=== PATIENT | male | born 1945 | race Caucasian/White ===

== ENCOUNTER 2022-12-19 16:19 | Inpatient (IN) | payer OTHER, MEDICARE ==
[~2022-12-19] VITALS: Ht 177.8 cm; Wt 83.7 kg
--- NOTE | 2022-12-19 16:28 | NUR ---
Patient to ER bed 01 to gown for evaluation. Side rails up.
--- NOTE | 2022-12-19 16:28 | NUR ---
MD NORMAN AT BEDSIDE FOR ASSESS. CALLED CODE STROKE. PT AAOX4. VSS. NAD NOTED. HAD SYNCOPAL EPISODE X 2 AT HOME PER PATIENT AND FIRE DEPARTMENT.
[2022-12-19 16:29] VITALS: BP_SYST 113
--- NOTE | 2022-12-19 16:31 | NUR ---
CODE STROKE CALLED
--- NOTE | 2022-12-19 16:31 | NUR ---
Libertad barton in [facility] - 12/19/22 at 1632 by [email or web address] Code stroke called at this time
[2022-12-19] MEDS ORDERED: NACL 0.9% 1,000 ML IV ONE ×2 (16:45→19:15)
[2022-12-19 17:15] LABS: BASOPHILS % (AUTO) 0.2 % (0.0-2.0); EOSINOPHILS % (AUTO) 0.1 % (0.0-4.0); HEMATOCRIT 35.3 % (36-54); HEMOGLOBIN 12.2 g/dL (14.0-18.0); LYMPHOCYTES % (AUTO) 5.4 % (20.5-51.5); MEAN CORPUSCULAR HEMOGLOBIN 31 pg (27-31); MEAN CORPUSCULAR HGB CONC 35 % (32-36); MEAN CORPUSCULAR VOLUME 90 fL (79.0-98.0); MONOCYTES # (AUTO) 1.3 K/uL (0.0-1.0); MONOCYTES % (AUTO) 6.7 % (1.7-9.3); NEUTROPHILS # (AUTO) 16.5 K/uL (1.8-7.7); NEUTROPHILS % (AUTO) 87.6 % (40.0-70.0); PLATELET COUNT (AUTO) 235 K/uL (130-430); RED BLOOD CELL COUNT(AUTO) 3.92 MIL/uL (4.2-6.2); RED CELL DISTRIBUTION WIDTH 14.6 % (9.0-15.0); WHITE BLOOD COUNT (AUTO) 18.9 K/uL (4.8-10.8)
[2022-12-19 17:22] LABS: PROTHROMBIN TIME 10.4 SECS (9.5-12.5)
[2022-12-19 17:25] LABS: ANION GAP 15 (5-15); CALCIUM 8.2 mg/dL (8.4-11.0); CHLORIDE 97 mmol/L (98-107); CREATININE 1.63 mg/dL (0.55-1.30); GLUCOSE 132 mg/dL (70-99); UREA NITROGEN, BLOOD 66 mg/dL (8-21)
[2022-12-19 17:30] LABS: ALANINE AMINOTRANSFERASE 65 U/L (12-78); ALBUMIN 3.8 g/dL (3.4-4.8); ALCOHOL, BLOOD < 3 mg/dL (<10); ASPARTATE AMINOTRANSFERASE 31 U/L (10-37); TOTAL BILIRUBIN 0.6 mg/dL (0.0-1.0)
[2022-12-19] MEDS ORDERED: iohexoL 350 mgI/mL, 100 ML INFUS..BTL IV ONE (18:21)
--- NOTE | 2022-12-19 19:06 | NUR ---
Admit bed requested Patient will be admitted to care of [[facility]]. Admitted to [Tele] unit. Diagnosis [Syncope] Inpatient (Yes or No) [yes] Observation (Yes or No) [No] Orientation concerns or request close to nursing station (Yes or No) [No] Covid Status [ n/a] On vent or bipap [n/a] Isolation requirements [n/a] Needs a sitter [n/a] From Home (Yes or if No enter name of facility) [yes] Requires Dialysis (Yes or No) [n/a] Med Rec Completed (Yes of No) []
[2022-12-19 19:20] LABS: BILIRUBIN,URINE NEGATIVE (NEGATIVE); COLOR,URINE YELLOW (YELLOW); GLUCOSE,URINE NEGATIVE (NEGATIVE); KETONES,URINE NEGATIVE (NEGATIVE); NITRITE, URINE NEGATIVE (NEGATIVE); PROTEIN URINE NEGATIVE (NEGATIVE); UROBILINOGEN,URINE 0.2 (0.2-1.0)
[2022-12-19 19:27] LABS: BLOOD, URINE TRACE (NEGATIVE)
[2022-12-19 19:28] LABS: BACTERIA,URINE FEW /HPF (None Seen); CLARITY/URINE HAZY (CLEAR); LEUKOCYTE ESTERASE ,URINE 2+ (NEGATIVE); RBC,URINE 0-3 /HPF (0-3)
[2022-12-19 19:29] LABS: HYALINE CASTS, URINE 0-10 /LPF (None Seen); MUCUS,URINE None Seen /LPF (None Seen)
[2022-12-19] MEDS ORDERED: ZOLPIDEM TARTRATE 5 MG TABLET PO PRN (19:30)
[2022-12-19] MEDS ORDERED: MUPIROCIN 2% TOPICAL OINTMENT 22 GM NS PRN (19:30)
[2022-12-19] MEDS ORDERED: ACETAMINOPHEN 325 MG TABLET PO PRN (19:30)
[2022-12-19] MEDS ORDERED: POTASSIUM CHLORIDE 20 MEQ TAB.PRT.SR PO PRN (19:30)
[2022-12-19] MEDS ORDERED: MORPHINE 2 MG/ML INJ. SYRINGE IVP PRN ×2 (19:30)
[2022-12-19] MEDS ORDERED: MAGNESIUM SULFATE 50 ML IV PRN (19:30)
[2022-12-19] MEDS ORDERED: DOCUSATE SODIUM 100 MG CAPSULE PO PRN (19:30)
[2022-12-19] MEDS ORDERED: ONDANSETRON HCL 4 MG/2 ML VIAL IVP PRN (19:30)
--- NOTE | 2022-12-19 19:30 | NUR ---
FIRST CONTACT WITH PT. ASSESSMENT COMPLETED. AWAITING ROOM ASSIGNMENT
[2022-12-19 19:38] LABS: BARBITURATE, URINE NEGATIVE (NEG <=200); BENZODIAZEPINE, URINE NEGATIVE (NEG <=150); CANNABINOID, URINE NEGATIVE (NEG <=50); COCAINE, URINE NEGATIVE (NEG <=150); METHAMPHETAMINES SCREEN,URINE NEGATIVE (NEG <=500); OPIATE, URINE NEGATIVE (NEG <=100); PHENCYCLIDINE SCREEN,URINE NEGATIVE (NEG <=25); UR TRICYCLIC ANTIDEPRESSANTS NEGATIVE (NEG <=300); URINE AMPHETAMINE NEGATIVE (NEG <=500); URINE METHADONE NEGATIVE (NEG <=200); URINE OXYCODONE SCREEN NEGATIVE (NEG <=100); URINE PROPOXYPHENE SCREEN NEGATIVE (NEG <=300)
--- NOTE | 2022-12-19 21:00 | NUR ---
PT RESTING WITH NO ACUTE DISTRESS.
[2022-12-19] MEDS: HEPARIN SODIUM,PORCINE 5,000 UNITS/ML VIAL SUBCUT SCH (21:33)
--- NOTE | 2022-12-19 22:15 | NUR ---
ADMIT NOTE Received pt from ER to the floor with a diagnosis of syncope. Admission process initiated. Patient oriented to pain management, safety and call light-teach back done. Patient AOx4. Denies dizziness.
[2022-12-19 22:30] VITALS: BP_SYST 103
--- NOTE | 2022-12-19 22:32 | NUR ---
Patient will be admitted to care of DR PITTMAN. Admitted to TELE unit. Will go to room 121A . Belongings list completed. Complete and up to date summary report printed. SBAR report to be given at bedside TO MIKI TINOCO with opportunity for questions.
[2022-12-20] VITALS (16 sets, daily range): BP systolic 82–127
[2022-12-20] MEDS: NACL 0.9% 1,000 ML IV SCH ×4 (00:15→21:14)
--- NOTE | 2022-12-20 04:25 | NUR ---
paged paged doctor janny for orders
[2022-12-20] MEDS ORDERED: NACL 0.9% 1,000 ML IV ONE ×2 (04:30→08:15)
--- NOTE | 2022-12-20 04:32 | NUR ---
Patient's BP 82/52, HR 105. Patient is AOx4 and asymptomatic. HR increased to 130 earlier in night when patient was ambulating to the bathroom but returned to 95 after return to bed. No dizziness, patient ambulated with steady gait. Patient also reported pain to right ribs when moving and stated he thinks he hit his right side on something when he fell at home. Notified Dr. Tse about patient's vitals and report of pain to right ribs. Received order for 1L NS bolus and Tylenol PRN.
[2022-12-20] MEDS: ACETAMINOPHEN 500 MG TABLET PO PRN ×4 (04:42→23:43)
--- NOTE | 2022-12-20 05:32 | NUR ---
CONSULTATION PAGED/CALLED Reason for Consultation: SYNCOPE Person Who was Notified: DR PANDEY VIA TEXT Consulting Physician: DR PANDEY Artist'S Manager Specialty: Ordering Physician: ZAIN
[2022-12-20 05:42] LABS: BASOPHILS % (AUTO) 0.5 % (0.0-2.0); EOSINOPHILS # (AUTO) 0.1 K/uL (0.0-0.4); EOSINOPHILS % (AUTO) 0.6 % (0.0-4.0); HEMATOCRIT 26.6 % (36-54); HEMOGLOBIN 9.3 g/dL (14.0-18.0); LYMPHOCYTES # (AUTO) 0.8 K/uL (1.0-5.5); LYMPHOCYTES % (AUTO) 10.5 % (20.5-51.5); MEAN CORPUSCULAR HEMOGLOBIN 31 pg (27-31); MEAN CORPUSCULAR HGB CONC 35 % (32-36); MEAN CORPUSCULAR VOLUME 90 fL (79.0-98.0); MONOCYTES # (AUTO) 0.7 K/uL (0.0-1.0); MONOCYTES % (AUTO) 9.3 % (1.7-9.3); NEUTROPHILS # (AUTO) 6.3 K/uL (1.8-7.7); NEUTROPHILS % (AUTO) 79.1 % (40.0-70.0); PLATELET COUNT (AUTO) 163 K/uL (130-430); RED BLOOD CELL COUNT(AUTO) 2.96 MIL/uL (4.2-6.2); RED CELL DISTRIBUTION WIDTH 14.5 % (9.0-15.0)
[2022-12-20 06:38] LABS: ANION GAP 10 (5-15); CALCIUM 7.4 mg/dL (8.4-11.0); CHLORIDE 106 mmol/L (98-107); CREATININE 1.33 mg/dL (0.55-1.30); GLUCOSE 147 mg/dL (70-99); UREA NITROGEN, BLOOD 45 mg/dL (8-21)
--- NOTE | 2022-12-20 07:00 | NUR ---
Notified Dr. Tse that following 1L NS bolus, patient's BP is 83/52 and HR 81. Patient still awake and alert and denies dizziness. Received orders to transfer to ICU, Levophed titrated to maintain SBP>90, and critical care consult with Dr. Mahoney.
[2022-12-20] MEDS ORDERED: NOREPINEPHRINE BITARTRATE 4 MG in NS 246 ML IV PRN (07:15)
--- NOTE | 2022-12-20 07:35 | NUR ---
Patient transfer to ICU for higher level care, SBAR report given to receiving nurse Juan M LIVINGSTON.
[2022-12-20] MEDS: ALBUMIN HUMAN 25% 50 ML IV SCH ×3 (09:46→17:19)
[2022-12-20] MEDS: cefTRIAXone 1 GM in D5W 50 ML IV SCH (09:47)
[2022-12-20] MEDS: HEPARIN SODIUM,PORCINE 5,000 UNITS/ML VIAL SUBCUT SCH ×2 (09:49→21:12)
--- NOTE | 2022-12-20 15:00 | NUR ---
Transfer from ICU Received SBAR report from Juan M LIVINGSTON from ICU, patient diagnosis of Syncope. AAOx4, anxious, vital signs stable. Complain of mild pain 2/10 to right rib cage, no other pain verbalizes at this time, no signs of distress noted. Respiration even and unlabored oxygen saturation 97% room air. IV infusing left AC patent, orient patient to room and environment. Continue to maintain safety precaution, bed in low position and call light w/in reached.
--- NOTE | 2022-12-20 18:50 | NUR ---
Closing Patient wake in bed, vital signs stable,no c/o pain/chest discomfort, all safety secured will endorse
--- NOTE | 2022-12-20 19:40 | NUR ---
PM ASSESSMENT; -Patient is awake, alert, oriented X 4. Patient oriented to hospital room, call light, toileting, pain management and safety-teach back done. Pt denies any chest pain,pain,sob,or any acute distress. IV site of LAC , no s/s any infiltration noted. IVF infusing well. Fall precaution in place. All safety measures in place, side rails x2, Call light within reach. Cont to monitor pt.
--- NOTE | 2022-12-20 23:43 | NUR ---
ROUNDS; -Pt is c/o rt flank pain aching 3/10, gave Tylenol po for pain mgmt. Assisting pt to bathroom and returned to bed safely. Bed alarmed,side rails x2. Cont to monitor pt.
[2022-12-21 01:00] VITALS: BP_SYST 146
--- NOTE | 2022-12-21 01:50 | NUR ---
ROUNDS; -Pt awakes, resting in bed comfortably. Pt denies any chest pain, pain,sob,or any acute distress. Bed alarmed,side rails x2. Cont to monitor pt.
[2022-12-21] MEDS: NACL 0.9% 1,000 ML IV SCH ×2 (02:36→17:12)
--- NOTE | 2022-12-21 02:38 | NUR ---
ROUNDS; - Assisting pt to bathroom and returned to bed safely after pt brushed his teeth. Bed alarmed,side rails x2. Cont to monitor pt.
[2022-12-21 06:02] LABS: ANION GAP 11 (5-15); CALCIUM 7.5 mg/dL (8.4-11.0); CHLORIDE 108 mmol/L (98-107); CREATININE 0.98 mg/dL (0.55-1.30); GLUCOSE 103 mg/dL (70-99); UREA NITROGEN, BLOOD 23 mg/dL (8-21)
[2022-12-21 06:05] LABS: ALANINE AMINOTRANSFERASE 46 U/L (12-78); ALBUMIN 3.2 g/dL (3.4-4.8); AMYLASE 106 U/L (0-100); ASPARTATE AMINOTRANSFERASE 27 U/L (10-37); CHOLESTEROL 108 mg/dL (<200); HDL CHOLESTEROL 64 mg/dL (>45); TOTAL BILIRUBIN 0.5 mg/dL (0.0-1.0); TRIGLYCERIDES 48 mg/dL (30-150)
[2022-12-21 06:18] LABS: BASOPHILS # (AUTO) 0.1 K/uL (0.0-0.2); BASOPHILS % (AUTO) 0.7 % (0.0-2.0); EOSINOPHILS # (AUTO) 0.1 K/uL (0.0-0.4); EOSINOPHILS % (AUTO) 1.6 % (0.0-4.0); HEMATOCRIT 27.1 % (36-54); HEMOGLOBIN 9.5 g/dL (14.0-18.0); LYMPHOCYTES # (AUTO) 1.2 K/uL (1.0-5.5); LYMPHOCYTES % (AUTO) 15.5 % (20.5-51.5); MEAN CORPUSCULAR HEMOGLOBIN 32 pg (27-31); MEAN CORPUSCULAR HGB CONC 35 % (32-36); MEAN CORPUSCULAR VOLUME 90 fL (79.0-98.0); MONOCYTES # (AUTO) 0.8 K/uL (0.0-1.0); MONOCYTES % (AUTO) 9.9 % (1.7-9.3); NEUTROPHILS # (AUTO) 5.8 K/uL (1.8-7.7); NEUTROPHILS % (AUTO) 72.3 % (40.0-70.0); PLATELET COUNT (AUTO) 156 K/uL (130-430); RED BLOOD CELL COUNT(AUTO) 3.01 MIL/uL (4.2-6.2); RED CELL DISTRIBUTION WIDTH 14.6 % (9.0-15.0)
--- NOTE | 2022-12-21 06:44 | NUR ---
CLOSING NOTES; -Pt is resting in bed comfortably. Pt denies any chest pain,pain,sob,or any acute distress. IVF infusing well. All safety measures in place. Pt's condition stable. will endorse to next nurse to continuity of care.
[2022-12-21 08:22] VITALS: BP_SYST 159
--- NOTE | 2022-12-21 08:22 | NUR ---
INITIAL ROUNDS Received pt AAOx4, no s/s resp distress, no c/o pain or discomfort, no c/o dizziness or lightheadedness. IVF infusing well at ordered rate with no s/s infiltration to site. Pt observed walking to the bathroom with steady gait and no light headedness. Plan of care for the day reviewed with pt-pt verbalized his understanding. Pain management, Hypotension, skin and safety discussed-teach back done. Call light within reach.
[2022-12-21] MEDS: cefTRIAXone 1 GM in D5W 50 ML IV SCH (09:18)
[2022-12-21] MEDS: HEPARIN SODIUM,PORCINE 5,000 UNITS/ML VIAL SUBCUT SCH ×2 (09:22→21:23)
[2022-12-21] MEDS ORDERED: ASA81 PO (11:05)
[2022-12-21] MEDS ORDERED: VALS1TAB80 PO (11:05)
--- NOTE | 2022-12-21 11:37 | NUR ---
ROUNDS//MD Pt very anxious and worried about going back to the ICU do to his BP 159/92 earlier-pt reassured that we can give him BP medications on MST and that Dr. Tse is aware and has decreased his IV F done to 80 ml/hr-plus we will monitor his BP. Called and spoke with pt's Zoila and obtained pt's home medications, Dr. Tse informed. Also, updated Zoila on pt's current plan of care and reassured her that he is doing better-she verbalized her understanding.
[2022-12-21] MEDS ORDERED: METOPROLOL TARTRATE 25 MG TABLET PO ONE (11:45)
[2022-12-21 17:05] VITALS: BP_SYST 152
[2022-12-21 19:00] VITALS: BP_SYST 146
--- NOTE | 2022-12-21 19:10 | NUR ---
CLOSING NOTE Pt sitting up in bed visiting with his family, no s/s resp distress, no c/o pain or discomfort, no c/o lightheadedness. IVF infusing well to LAC at ordered rate with no s/s infiltration to site. Endorsed care to shiftman nurse. All precautions remain in place. Call light within reach.
--- NOTE | 2022-12-21 19:15 | NUR ---
change of shift.pt.presents quiescent affect;calm,resting family ;present.pt.presents iv access location;lt.antecubital. iv fluids infusing.pt.capable to ambulate;un-assisted.no c/o pain,nausea.general status stable.respiratory status stable; un-labored@room air.call light/telephone w/in access of the pt.
[2022-12-21 20:00] VITALS: BP_SYST 146
--- NOTE | 2022-12-21 20:00 | NUR ---
pt.assessed.v/s assessed values wnl.no c/o pain,nausea.iv access intact;patent.pt.apprised snacks/beverages are available w/in the shift.no request posited@this hour.pt.capable to reposition self.call light/telephone w/in access of the pt.
--- NOTE | 2022-12-21 21:00 | NUR ---
2100p medications administered.pt.capable to ingest the po medications w/out difficulty.no c/o pain,nausea. call light/telephone w/in access of the pt.
[2022-12-21] MEDS: METOPROLOL TARTRATE 25 MG TABLET PO SCH (21:12)
--- NOTE | 2022-12-21 22:00 | NUR ---
pt.assessed.pt.slight anxiety status.no c/o pain,nausea.iv access intact;patent.pt.ambulated to the restroom.gait assessed wnl.no requests posited@this hour.call light/telephone placed w/in access of the pt.
[2022-12-21] MEDS ORDERED: LORazepam 1 MG TABLET PO ONE (22:15)
--- NOTE | 2022-12-21 22:15 | NUR ---
HIGH ALERT NOTE: Called Dr. soliman back at identified within the medical roster to verify physician authenticity.pt's dtr noted the pt.presented anxious status.pt's dtr apprised nsg if medication;anxiety could be ordered. paged apprised of the pt's status;anxiety. orderd:ativan:1mg po x1.
--- NOTE | 2022-12-22 | NUR ---
pt.assessed.v/s assessed values wnl.pt.requested tylenol:ex-strength:1 tab administered.to assess the efficacy of the pain medication per pain mgx protocol.pt.requested pitcher of water provided.pt.ambulated to the restroom:gait wnl.call light/ telephone placed w/in access of the pt.
[2022-12-22] MEDS: NACL 0.9% 1,000 ML IV SCH (00:15)
[2022-12-22 00:29] VITALS: BP_SYST 151
[2022-12-22] MEDS: ACETAMINOPHEN 500 MG TABLET PO PRN ×2 (00:35→08:10)
--- NOTE | 2022-12-22 02:00 | NUR ---
pt.assessed.pt.assisted to the restroom.gait assessed wnl.no c/o pain,nausea.iv access intact;patent.call light/telephone placed w/in access of the pt.
--- NOTE | 2022-12-22 04:00 | NUR ---
pt.assessed.pt.assisted to the restroom.gait assessed wnl.no c/o pain,nausea.no requests posited@this hour.call light/telephone w/in access of the pt.
[2022-12-22 06:17] LABS: BASOPHILS # (AUTO) 0.1 K/uL (0.0-0.2); BASOPHILS % (AUTO) 0.7 % (0.0-2.0); EOSINOPHILS # (AUTO) 0.2 K/uL (0.0-0.4); EOSINOPHILS % (AUTO) 1.9 % (0.0-4.0); HEMATOCRIT 26.9 % (36-54); HEMOGLOBIN 9.4 g/dL (14.0-18.0); LYMPHOCYTES # (AUTO) 1.3 K/uL (1.0-5.5); LYMPHOCYTES % (AUTO) 15.9 % (20.5-51.5); MEAN CORPUSCULAR HEMOGLOBIN 32 pg (27-31); MEAN CORPUSCULAR HGB CONC 35 % (32-36); MEAN CORPUSCULAR VOLUME 90 fL (79.0-98.0); MONOCYTES # (AUTO) 0.8 K/uL (0.0-1.0); MONOCYTES % (AUTO) 9.6 % (1.7-9.3); NEUTROPHILS % (AUTO) 71.9 % (40.0-70.0); PLATELET COUNT (AUTO) 172 K/uL (130-430); RED BLOOD CELL COUNT(AUTO) 2.98 MIL/uL (4.2-6.2); RED CELL DISTRIBUTION WIDTH 14.6 % (9.0-15.0); WHITE BLOOD COUNT (AUTO) 8.3 K/uL (4.8-10.8)
[2022-12-22 06:38] LABS: ANION GAP 11 (5-15); CALCIUM 8.2 mg/dL (8.4-11.0); CHLORIDE 105 mmol/L (98-107); CREATININE 0.98 mg/dL (0.55-1.30); GLUCOSE 96 mg/dL (70-99); UREA NITROGEN, BLOOD 12 mg/dL (8-21)
[2022-12-22 07:47] VITALS: BP_SYST 130
[2022-12-22] MEDS: cefTRIAXone 1 GM in D5W 50 ML IV SCH (08:07)
[2022-12-22] MEDS: METOPROLOL TARTRATE 25 MG TABLET PO SCH (08:07)
[2022-12-22] MEDS: HEPARIN SODIUM,PORCINE 5,000 UNITS/ML VIAL SUBCUT SCH (08:10)
[2022-12-22] MEDS ORDERED: ASPIRIN 81 MG TAB.CHEW PO SCH (09:00)
[2022-12-22 11:16] VITALS: BP_SYST 114
[2022-12-22] MEDS ORDERED: LEVO-62 PO (11:38)
[2022-12-22] MEDS ORDERED: METO25TA3 PO (11:38)
--- NOTE | 2022-12-22 11:53 | NUR ---
INFORMED PT OF DC HOME ORDER.
[2022-12-22 13:07] VITALS: BP_SYST 114
--- NOTE | 2022-12-22 15:03 | NUR ---
D/C Patient Patient given medication reconciliation form and D/C instructions. Exit Care provided. Patient verbalized understanding. MD discussed with patient the results and treatment provided. Ambulatory with steady gait for discharge to home. Patient in stable condition, ID band removed. IV catheter removed, intact and dressing applied, no active bleeding. ERx given. Patient educated on pain management. All belongings sent with patient.
== END 2022-12-22 14:40 | disposition home or self-care (01) | DRG 871 ==
LOC: SED 16:19 → STU 19:08 → SIC 12-20 08:00 → STU 12-20 15:30
PROVIDERS: ADMIT General Practice; ATTEND General Practice
PROC: 4A00X4Z Measurement of Central Nervous Electrical Activity, External Approach (ICD-10-PCS; principal; 2022-12-20)
DX: A41.9 Sepsis, unspecified organism (principal); N17.0 Acute kidney failure with tubular necrosis; R65.21 Severe sepsis with septic shock; N39.0 Urinary tract infection, site not specified; G90.8 Other disorders of autonomic nervous system; I10 Essential (primary) hypertension; E86.1 Hypovolemia; E86.0 Dehydration; E83.51 Hypocalcemia; S20.219A Contusion of unspecified front wall of thorax, initial encounter; W18.39XA Other fall on same level, initial encounter; Z88.8 Allergy status to other drugs, medicaments and biological substances; Z79.899 Other long term (current) drug therapy; Y93.89 Activity, other specified; Y99.8 Other external cause status; Z79.82 Long term (current) use of aspirin; Z87.19 Personal history of other diseases of the digestive system; Y92.015 Private garage of single-family (private) house as the place of occurrence of the external cause
CPT/HCPCS: 36415; 70450-TC; 71045; 76376; 80048; 80053; 80061; 80307; 81000; 82150; 82962; 83037; 83735; 83880; 84443; 84484; 85025; 85610-TC; 85730-TC; 87086; 93005; 93306; 95816; 96360; 96361; 99285; G0378; G0482; J0696; J1644; J2270; J7050; J7060; P9046; Q9967